=== PATIENT | female | born 1995 | race American Indian/Alaskan Native ===

== ENCOUNTER 2020-03-31 18:31 | Emergency (ER) | payer SELFPAY ==
[2020-03-31 20:40] VITALS: BP 132/90
--- NOTE | 2020-03-31 21:30 | Emergency Department Report ---
ED ENT HPI - General Chief complaint: Sore Throat Stated complaint: FEVER Time Seen by Provider: 03/31/20 21:22 Source: patient Mode of arrival: Ambulatory Limitations: No Limitations - History of Present Illness Initial comments: Patient is a 24-year-old female presents emergency room complaints of a sore throat that began yesterday. She has associated chills and fever. She states that she does have just some discomfort with swallowing. She states that she is able to tolerate p.o. intake and her secretions without difficulty. She denies any cough, nausea, vomiting, diarrhea, ear pain, any other symptoms. She denies any past medical history or allergies to medications. She states her last menstrual cycle was the middle of February. - Related Data Previous Rx's Medication Instructions Recorded Last Taken Type Penicillin Vk [Veetids TAB] 500 mg PO BID 10 Days #40 tablet 03/31/20 Unknown Rx Allergies Allergy/AdvReac Type Severity Reaction Status Date / Time No Known Allergies Allergy Verified 03/31/20 19:29 ED Dental HPI - General Chief complaint: Sore Throat Stated complaint: FEVER Time Seen by Provider: 03/31/20 21:22 Source: patient Mode of arrival: Ambulatory Limitations: No Limitations - Related Data Previous Rx's Medication Instructions Recorded Last Taken Type Penicillin Vk [Veetids TAB] 500 mg PO BID 10 Days #40 tablet 03/31/20 Unknown Rx Allergies Allergy/AdvReac Type Severity Reaction Status Date / Time No Known Allergies Allergy Verified 03/31/20 19:29 ED Review of Systems ROS: Stated complaint: FEVER Other details as noted in HPI Comment: All other systems reviewed and negative ED Past Medical Hx - Past Medical History Previous Medical History?: No - Surgical History Past Surgical History?: No - Social History Smoking Status: Never Smoker Substance Use Type: None - Medications Home Medications: Home Medications Medication Instructions Recorded Confirmed Last Taken Type Penicillin Vk [Veetids TAB] 500 mg PO BID 10 Days #40 tablet 03/31/20 Unknown Rx ED Physical Exam - General Limitations: No Limitations General appearance: alert, in no apparent distress - Head Head exam: Present: atraumatic, normocephalic - Eye Eye exam: Present: normal appearance - ENT ENT exam: Present: mucous membranes moist, other (mild tonsillar hypertrophy bilaterally with small amount of exudates, uvula is midline, no uvular edema or deviation, tolerating secretions, bilateral cerumen impactions, visualized portions of bilateral canals are normal) - Respiratory Respiratory exam: Present: normal lung sounds bilaterally. Absent: respiratory distress, wheezes, rales, rhonchi, stridor, chest wall tenderness, accessory mus vicky use, decreased breath sounds, prolonged expiratory - Cardiovascular Cardiovascular Exam: Present: normal rhythm, tachycardia, normal heart sounds. Absent: systolic murmur, diastolic murmur, rubs, gallop - Neurological Exam Neurological exam: Present: alert, oriented X3 - Psychiatric Psychiatric exam: Present: normal affect, normal mood - Skin Skin exam: Present: warm, dry, intact ED Course Vital Signs 03/31/20 03/31/20 19:26 21:23 Temperature 100.5 F H 99.8 F H Pulse Rate 111 H Respiratory 14 18 Rate Blood Pressure 132/90 O2 Sat by Pulse 100 Oximetry ED Medical Decision Making - Lab Data Vital Signs 03/31/20 03/31/20 19:26 21:23 Temperature 100.5 F H 99.8 F H Pulse Rate 111 H Respiratory 14 18 Rate Blood Pressure 132/90 O2 Sat by Pulse 100 Oximetry - Medical Decision Making Patient is a 24-year-old female presents emergency room complaints of a sore throat that began yesterday. She has associated chills and fever. She states that she does have just some discomfort with swallowing. She states that she is able to tolerate p.o. intake and her secretions without difficulty. She denies any cough, nausea, vomiting, diarrhea, ear pain, any other symptoms. She denies any past medical history or allergies to medications. She states her last menstrual cycle was the middle of February. vitals with low grade fever and tachycardia likely related to low grade temperature. on exam:mild tonsillar hypertrophy bilaterally with small amount of exudates, uvula is midline, no uvular edema or deviation, tolerating secretions, bilateral cerumen impactions, visualized portions of bilateral canals are normal. Examination consistent with tonsillitis. No clinical signs of peritonsillar abscess. Patient given prescription for penicillin VK. Advised patient Please take medication as prescribed to completion. May alternate Tylenol and then ibuprofen every 6 hours as needed for fever or body aches. Please gargle with warm salt water. Increase your fluid intake over the next several days. Follow-up with a primary care doctor for reexamination. Return to the emergency room immediately for any new or worsening symptoms. Critical care attestation.: If time is entered above; I have spent that time in minutes in the direct care of this critically ill patient, excluding procedure time. ED Disposition Clinical Impression: Tonsillitis Disposition: [id number] TO HOME OR SELFCARE Is pt being admited?: No Does the pt Need Aspirin: No Condition: Stable Instructions: Tonsillitis (ED) Additional Instructions: Please take medication as prescribed to completion. May alternate Tylenol and then ibuprofen every 6 hours as needed for fever or body aches. Please gargle with warm salt water. Increase your fluid intake over the next several days. Follow-up with a primary care doctor for reexamination. Return to the emergency room immediately for any new or worsening symptoms. Prescriptions: Penicillin Vk [Veetids TAB] 500 mg PO BID 10 Days #40 tablet Referrals: TANO MILLER MD [Staff Physician] - 3-5 Days [facility] [Provider Group] - 3-5 Days [facility] [Outside] - 3-5 Days Time of Disposition: 21:28 Print Language: SLOVAK
== END 2020-03-31 21:35 | disposition home or self-care (01) ==
LOC: ED 18:31
DX: J03.90 Acute tonsillitis, unspecified (principal)
CPT/HCPCS: 99282